=== PATIENT | female | born 1950 | race Caucasian/White ===

== ENCOUNTER 2018-08-03 09:31 | Observation (INO) | payer OTHER ==
[~2018-08-03 09:31] MED LIST: POVIDONE-IODINE 20 ML in SODIUM CL IRRIG SOLUTION 500 ML IRR ONE; ROPIVACAINE 0.2% 80 MG, EPINEPHrine 0.2 MG, KETOROLAC TROMETHAMINE 30 MG in SYRINGE 0 ML IU ONE; TRANEXAMIC ACID 1,000 MG in NS 100 ML IV ONE; TRANEXAMIC ACID 3,000 MG in NS (SYRINGE) 50 ML IRR ONE
[2018-08-03] MEDS ORDERED: ceFAZolin 2 GM/DEXTROSE 100 ML IV ONE (09:49)
[2018-08-03] MEDS ORDERED: DEXAMETHASONE 4 MG/ML VIAL IVP ONE (09:49)
[2018-08-03] MEDS ORDERED: GABAPENTIN 300 MG CAP PO ONE (09:49)
[2018-08-03] MEDS ORDERED: ONDANSETRON 4 MG/2 ML VIAL IVP ONE (09:49)
[2018-08-03] MEDS ORDERED: FAMOTIDINE 20 MG TAB PO ONE (09:49)
[2018-08-03] MEDS ORDERED: ACETAMINOPHEN 325 MG TAB PO ONE (09:49)
[2018-08-03] MEDS ORDERED: LR 1,000 ML IV ONE (09:51)
[2018-08-03] MEDS ORDERED: PROPOFOL/EMULSION 500 MG/50 ML BOTTLE IV ONE (10:57)
--- NOTE | 2018-08-03 10:57 | PDANEPAE ---
ANE History of Present Illness ,left tka ANE Past Medical History - Cardiovascular History Hx Hypertension: No Hx Arrhythmias: No Hx Chest Pain: No Hx Coronary Artery / Peripheral Vascular Disease: No Hx CHF / Valvular Disease: No Hx Palpitations: No - Pulmonary History Hx COPD: No Hx Asthma/Reactive Airway Disease: No Hx Recent Upper Respiratory Infection: No Hx Oxygen in Use at Home: No Hx Sleep Apnea: No Sleep Apnea Screening Result - Last Documented: Negative - Neurologic History Hx Cerebrovascular Accident: No Hx Seizures: No Hx Dementia: No Neurologic History Comment: MIGRAINES IN PAST - Endocrine History Hx Diabetes: No Obesity: yes, moderate - Renal History Hx Renal Disorders: No - Liver History Hx Hepatic Disorders: No - Neurological & Psychiatric Hx Hx Neurological and Psychiatric Disorders: No - Cancer History Hx Cancer: No - Congenital Disorder History Hx Congenital Disorders: No - GI History GERD: no Hx Gastrointestinal Disorders: Yes Gastrointestinal History Comment: HEARTBURN. DIVERTICULITIS IN PAST - Other Health History Other Health History: NEG - Chronic Pain History Chronic Pain: Yes (BETTY KNEES) - Surgical History Prior Surgeries: ELBOWS BETTY. R ANKLE W/PLATE. ACL L KNEE ANE Review of Systems Review of systems is: negative Review of Systems: - Exercise capacity METS (RN): 4 METS ANE Patient History - Allergies Allergies/Adverse Reactions: amoxicillin Allergy (Verified 07/22/18 15:24) Rash - Home Medications Home medications: home medication list seen and reviewed Home Medications: Acetaminophen [Tylenol ES 500 mg (*)] 1,000 mg PO DAILY PRN 07/22/18 [Last Taken 2 Weeks Ago ~07/20/18] Acyclovir [Zovirax 400 mg (*)] 400 mg PO DAILY 07/22/18 [Last Taken 08/03/18] Cholecalciferol Vit D3 [Vitamin D3 (*)] 1,000 units PO DAILY 07/22/18 [Last Taken 2 Weeks Ago ~07/20/18] Herbals/Supplements -Info Only 1 ea PO AD 07/22/18 [Last Taken 2 Weeks Ago ~04/28] Ranitidine HCl [Zantac] 150 mg PO DAILY PRN 07/22/18 [Last Taken 2 Weeks Ago ~] diphenhydrAMINE [Benadryl 25 MG (*)] 50 mg PO HS PRN 07/22/18 [Last Taken 2 Weeks Ago ~07/20/18] - NPO status NPO Since - Liquids (Date): 08/03/18 NPO Since - Liquids (Time): 10:00 NPO Since - Solids (Date): 08/02/18 NPO Since - Solids (Time): 20:00 - Anes Hx Anes Hx: no prior problems - Smoking Hx Smoking Status: Never smoked - Family Anes Hx Family Hx Anesthesia Complications: NEG ANE Labs/Vital Signs - Vital Signs Blood Pressure: 161/84 Heart Rate: 74 Respiratory Rate: 16 O2 Sat (%): 95 Height: 162.56 cm Weight: 88.451 kg ANE Physical Exam - Airway Neck exam: FROM Mallampati Score: Class 2 Mouth exam: normal dental/mouth exam - Pulmonary Pulmonary: no respiratory distress - Cardiovascular Cardiovascular: regular rate and rhythym - ASA Status ASA Status: II ANE Anesthesia Plan Anesthesia Plan: spinal Regional Anesthesia: continuous NB, adductor canal FNB
[2018-08-03] MEDS ORDERED: LIDOCAINE 2% 5 ML SDV ONE (10:59)
--- NOTE | 2018-08-03 12:10 | PDHPUP ---
History & Physical Update H&P update statement: This history and physical update is based on an assessment of the patient which was completed after admission or registration (within 24 hours), but prior to the surgery/procedure. H&P update: H&P reviewed & patient examined
[2018-08-03] MEDS ORDERED: VANCOMYCIN 1 GM VIAL ONE (12:14)
[2018-08-03] MEDS ORDERED: ceFAZolin 1 GM/5 ML SYR ONE (12:15)
[2018-08-03] MEDS ORDERED: MIDAZOLAM 2 MG/2 ML VIAL IVP ONE (12:35)
[2018-08-03] MEDS ORDERED: ROPIVACAINE HCL 150 MG/30 ML INJ ONE (12:48)
[2018-08-03] MEDS ORDERED: BUPIVACAINE/DEXTROSE 7.5MG/ML 2 ML SPINAL AMP SP ONE (12:59)
[2018-08-03] MEDS ORDERED: fentaNYL 100 MCG/2 ML INJ IVP PRN (13:31)
[2018-08-03] MEDS ORDERED: HYDROCODONE/APAP 5/325 TAB PO PRN (13:31)
[2018-08-03] MEDS ORDERED: HYDROmorphONE/DILAUDID 2 MG/ML INJ IVP PRN (13:31)
[2018-08-03] MEDS ORDERED: LR 500 ML IV PRN (13:31)
[2018-08-03] MEDS ORDERED: NALOXONE HCL 0.4 MG/ML INJ IVP PRN (13:31)
[2018-08-03] MEDS ORDERED: ACETAMINOPHEN 500 MG TAB PO PRN (13:31)
[2018-08-03] MEDS ORDERED: ONDANSETRON 4 MG/2 ML VIAL IVP PRN ×2 (13:31→15:28)
[2018-08-03] MEDS ORDERED: PROMETHAZINE HCL 25 MG/ML INJ IVP PRN ×2 (13:31→15:28)
[2018-08-03] MEDS ORDERED: oxyCODONE IR 5 MG TAB PO PRN (13:31)
--- NOTE | 2018-08-03 13:32 | POSTANESTH ---
Post Anesthetic Evaluation Cardiovascular Status: Normal, Stable Respiratory Status: Normal, Stable Level of Consciousness/Mental Status: Can Participate in Eval, Alert and Oriented Pain Control: Adequate, Prn Tx Ordered Nausea/Vomiting Control: Adequate, Prn Tx Ordered Complications Possibly Related to Anesthesia: None Noted
[2018-08-03] MEDS ORDERED: PROPOFOL 200 MG/20 ML VIAL ONE ×2 (14:09→14:44)
--- NOTE | 2018-08-03 15:07 | POSTOPPROG ---
Post Op Note Date of Operation: 08/03/18 Surgeon: Rupert Molina Lithograph Press Feeder: Rosy Anesthesiologist: Amna Anesthesia: IV Sedation, Spinal Pre-op Diagnosis: Left knee severe degenerative arthritis. Status post ACL reconstruction. Procedure: Left total knee arthroplasty. Hardware removal from the left tibia. Inf/Abcess present in the surg proc area at time of surgery?: No EBL: 50-100 (Adductor canal block with indwelling catheter in the PACU.)
[2018-08-03] MEDS ORDERED: traMADol 50 MG TAB PO PRN (15:28)
[2018-08-03] MEDS ORDERED: diphenhydrAMINE 25 MG CAP PO PRN (15:28)
[2018-08-03] MEDS ORDERED: NS 500 ML IV PRN (15:28)
[2018-08-03] MEDS ORDERED: CYCLOBENZAPRINE 10 MG TAB PO PRN (15:28)
[2018-08-03] MEDS ORDERED: NON-FORMULARY NEW DRUG (Ranitidine Hcl [Zantac] 150 MG) PO PRN (15:28)
[2018-08-03] MEDS ORDERED: BISACODYL 10 MG SUPP PR PRN (15:28)
[2018-08-03] MEDS ORDERED: ONDANSETRON DISINTEGRATING 4 MG TAB PO PRN (15:28)
[2018-08-03] MEDS ORDERED: POLYETHYLENE GLYCOL 3350 17 GM PKT PO PRN (15:28)
[2018-08-03] MEDS ORDERED: METOCLOPRAMIDE 10 MG/2 ML VIAL IVP PRN (15:28)
[2018-08-03] MEDS ORDERED: MAGNESIUM HYDROXIDE 30 ML UDCUP PO PRN (15:28)
[2018-08-03] MEDS ORDERED: DIPHENOXYLATE/ATROPINE LOMOTIL 1 TAB PO PRN (15:28)
[2018-08-03] MEDS ORDERED: PROMETHAZINE HCL 25 MG SUPPR PR PRN (15:28)
[2018-08-03] MEDS ORDERED: LACTULOSE 20 GM/30 ML UDCUP PO PRN (15:28)
[2018-08-03] MEDS ORDERED: LR 1,000 ML IV SCH (15:30)
[2018-08-03] MEDS: oxyCODONE IR 5 MG TAB PO PRN ×2 (18:14→21:14)
[2018-08-03] MEDS: KETOROLAC 15 MG/1 ML SDV IVP SCH ×2 (18:14→23:47)
[2018-08-03] MEDS: ACETAMINOPHEN 325 MG TAB PO SCH (21:12)
[2018-08-03] MEDS: FAMOTIDINE 20 MG TAB PO SCH (21:13)
[2018-08-03] MEDS: SENNOSIDES/DOCUSATE SODIUM TAB PO SCH (21:13)
[2018-08-03] MEDS: ceFAZolin 2 GM/DEXTROSE 100 ML IV SCH (21:14)
[2018-08-03] MEDS: ASPIRIN 325 MG TAB PO SCH (21:26)
[2018-08-03] MEDS: TEMAZEPAM 15 MG CAP PO PRN ×2 (22:06→23:47)
[2018-08-04] MEDS: oxyCODONE IR 5 MG TAB PO PRN ×3 (03:48→13:19)
[2018-08-04] MEDS: ACETAMINOPHEN 325 MG TAB PO SCH ×3 (03:49→14:57)
[2018-08-04] MEDS: ceFAZolin 2 GM/DEXTROSE 100 ML IV SCH (05:20)
[2018-08-04] MEDS: KETOROLAC 15 MG/1 ML SDV IVP SCH ×2 (05:20→11:38)
[2018-08-04] MEDS ORDERED: FERROUS SULFATE 325 MG TAB PO SCH (08:00)
--- NOTE | 2018-08-04 08:31 | GOP ---
[f rep st] OPERATIVE REPORT DATE OF OPERATION: 08/03/2018 SURGEON: Rupert Molina MD MANAGER OF PMO: Norberto Bailey and Bernabe ulloa ANESTHESIA: A combination of Marcaine spinal, IV sedation, and adductor canal block. ANESTHESIOLOGIST: Alexi Woo MD PREOPERATIVE DIAGNOSIS: Left knee severe degenerative arthritis, status post anterior cruciate ligament reconstruction. POSTOPERATIVE DIAGNOSIS: Left knee severe degenerative arthritis, status post anterior cruciate ligament reconstruction with retained hardware. PROCEDURE PERFORMED: 1. Left total knee arthroplasty, cemented, Grove and Nephew Journey II, posterior stabilized. 2. Hardware removal from the left tibia. FINDINGS: DESCRIPTION OF PROCEDURE: The patient was given 2 g of IV Ancef preoperatively within 60 minutes of surgery. She also received 1000 mg of IV tranexamic acid preoperatively. She was placed on the operating room table and given spinal anesthesia with Marcaine by Dr. Woo. She was then placed supine and given IV sedation. A Kelsey catheter was not used. She wore a LEXI stocking and SCD on the nonoperative leg. A bolster was placed under her left hip to prevent excessive external rotation of the leg. Her left lower extremity was prepped with ChloraPrep from the upper thigh tourniquet to the tips of the toes. It was draped free using sterile sheets, stockinette, and Ioban plastic adhesive drape. The lower leg was wrapped with compressive Coban. The leg was exsanguinated with elevation and a 6-inch compressive wrap, and the pneumatic tourniquet were inflated to 300 mmHg. She had a bulky thigh. The World Health Organization time-out was performed to verify the correct patient identity and the correct surgical side and site. The [place] time-out was also performed. The Agentrunayo leg holding device was sterilely attached to the operating room table and used throughout the procedure to help position the knee. A straight midline incision was made centered on the patella. Subcutaneous tissues were sharply divided, and hemostasis was obtained using electrocautery. A medial subcutaneous flap was developed, and the medial capsule and periosteum were opened in a medial parapatellar fashion. Extensive degenerative changes were present throughout the knee. The medial capsule and periosteum were elevated off the rim of the medial tibial plateau all the way around to the posterior medial corner. I had to do a moderately aggressive release of the medial side in order to balance the varus deformity of her knee. In order to improve exposure, her patella was prepared first. The original thickness of the patella was measured. Peripheral osteophytes were removed. I cut a flat surface on the back of the patella. It was sized for a 32 mm resurfacing component. I removed enough bone from the patella such that the remaining bone plus the thickness of the patellar component recreated the original thickness of the patella. The composite thickness was 22 mm. The intramedullary alignment guide system was used to set up the distal femoral cut. The distal femur was cut in 6 degrees of valgus. Because of a slight preoperative flexion contracture, I made a +2 mm cut on the distal femur. The sizing jig was used to determine proper femoral sizing. The jig was shifted anteriorly 2 mm in order to accommodate a size 4 femoral component without notching the anterior cortex. The 5-in-1 cutting block was applied, and the anterior and posterior condylar cuts and chamfer cuts were made. The final jig was used to remove the central portion of the distal femur to accommodate the posterior stabilized femoral component. I was careful to determine proper rotation by referencing off Whitesides line and other bony landmarks. Each cut was checked for accuracy. The femur was sized for a size 4 posterior stabilized component. Next, the tibia was prepared. There was an interference screw in the medial aspect of the proximal tibia from her previous ACL reconstruction. This had to be removed in order to make the tibial cuts. The tip of the screw was exposed. It was backed out with the appropriate screwdriver without any difficulty. The proximal tibial cut was made using the extramedullary alignment guide system. The cut was made in a few degrees of posterior slope. I was careful to achieve proper varus valgus alignment and proper rotation. The posterior compartment was cleared of meniscal remnants. She had large osteophytes on her posterior femoral condyles which were removed. She also had some loose bodies in the posterior compartment which were removed. I checked the flexion and extension gaps. I had to recut the tibia an additional 2 mm. At that point, the gaps were equal and balanced. Her tibia was sized for a size 3 component. With the trial components in place, I selected various thicknesses of polyethylene. I finally concluded that the 13 mm was the proper thickness. The knee came to full extension and flexed to 125 degrees. Her collateral ligaments were stable and balanced in 90 degrees of flexion and full extension. The trial patellar button was applied and tracking was checked. Tracking was excellent without digital pressure. 40 cc of joint anesthetic cocktail were injected into the posterior capsule, the quadriceps muscle and tendon areas, and the subcutaneous tissues along the skin edges. The surfaces were prepared for cementing. They were carefully cleaned with the pulsating lavage irrigation and thoroughly dried. The CarboJet device was used to blow dry the cancellous surfaces. A double batch of high viscosity methylmethacrylate cement with 2 g of powdered vancomycin added was mixed. While it was still in a doughy state, all [address] components were cement[address] in place. Excess cement was removed before it hardened. The 13 mm trial tibial insert was re-tried and was the proper thickness. The actual component was inserted and locked into place. The knee was thoroughly irrigated one final time with antibiotic saline solution. [facility] does not have sterile betadine irrigation solution available currently. The tourniquet was deflated, and the total tourniquet time was 1 hour 22 minutes. Extra time was needed to get proper joint gap balancing. 50 cc of tranexamic acid were irrigated into the wound. The vastus medialis portion of the extensor mechanism was repaired with several interrupted [id number] #2 FiberWire sutures. The capsule and synovium were closed first with multiple interrupted [id number] PDS sutures, followed by a running #3 barbed Ethicon Stratafix PDO suture. Subcutaneous tissues were closed with a running 0 barbed Ethicon Stratafix Monoderm suture. The skin was closed with a running 3-0 barbed Ethicon Stratafix Monoderm subcuticular suture. The skin was sealed with half-inch Steri-Strips. The wound was covered with a large sterile Mepilex waterproof dressing and a 6-inch compressive wrap. A long-leg LEXI stocking and SCD were applied, followed by the cooling device. The patient wore a stocking and SCD on the opposite leg during the procedure. The sacral Mepilex dressing was also applied. I used a size 4 Grove and Nephew Oxinium cemented posterior stabilized femoral component, a size 3 cemented tibial baseplate, a 13 mm posterior stabilized tibial insert, and a 32 mm cemented round all-polyethylene resurfacing patellar component. The estimated blood loss following inflation of the tourniquet was about 100 cc. The sponge and needle count were correct on 2 occasions. She was awakened from anesthesia, transferred to her hospital [facility], and taken to PACU in satisfactory condition. There were no recognized intraoperative complications. In the PACU, for additional postoperative pain control, Dr. Woo performed an adductor canal block. Norberto Bailey and Bernabe Alva acted as surgical assistants. Their assistance was a medical necessity for safe completion of the procedure. /[id number]/MODL MTDD
[2018-08-04] MEDS ORDERED: LIPID EMULSION 20% 100 ML IV PRN (08:45)
[2018-08-04] MEDS ORDERED: ROPIVACAINE HCL 150 MG/30 ML INJ ONE (08:51)
[2018-08-04] MEDS ORDERED: CHOLECALCIFEROL VIT D3 1,000 UNITS TAB PO SCH (09:00)
[2018-08-04] MEDS ORDERED: ACYCLOVIR 400 MG TAB PO SCH (09:00)
--- NOTE | 2018-08-04 09:38 | PDPAINCON ---
Pain Management Consultation Patient referred by : Jesse - Subjective Pain is: high, but manageable Activity: able to ambulate, participating in PT - Objective Technique: continuous peripheral nerve block (adductor canal) Catheter site: clean, dry, intact Sensory and motor exam: consistent with block Vital signs: stable - Assessment/Plan Assessment/Plan: pain well-controlled, continue current mgmt (POD 1 s/p TKA, with AC catheter in place. 0.5% ropivacaine 20ml bolused incrementally today with negative aspiration. Catheter removed without complication. Patient had syncopal episode during PT session this morning, resolved with laying supine. Likely d/c home later today.)
[2018-08-04] MEDS: FAMOTIDINE 20 MG TAB PO SCH (09:43)
[2018-08-04] MEDS: SENNOSIDES/DOCUSATE SODIUM TAB PO SCH (09:44)
[2018-08-04] MEDS: ASPIRIN 325 MG TAB PO SCH (09:44)
--- NOTE | 2018-08-04 09:45 | SOAPPROG ---
SOAP Progress Note Assessment/Plan: Assessment: Afebrile. Moderate pain. She has been up and walking in the ahuja. Postop H&H are good. Postop films look good. Her dressing is dry. She had a syncopal episode during physical therapy this morning. Plan: Continue physical therapy this afternoon. Discharge later today. 08/04/18 09:43 Objective: Vital Signs Temp Pulse Resp BP Pulse Ox 36.4 C 79 16 109/69 93 08/04/18 08:00 08/04/18 08:00 08/04/18 08:00 08/04/18 08:00 08/04/18 08:00 Laboratory Results 08/04/18 04:42 08/03/18 08/04/18 08/05/18 05:59 05:59 05:59 Intake Total 2004 350 Output Total 1650 250 Balance 355 100 ICD10 Worksheet Patient Problems: Problems Problem Status Onset Osteoarthritis of left knee Acute
--- NOTE | 2018-08-04 10:36 | GDS ---
[f rep st] DISCHARGE SUMMARY ADMISSION DIAGNOSIS: Left knee severe degenerative arthritis, status post anterior cruciate ligament reconstruction. DISCHARGE DIAGNOSIS: Left knee severe degenerative arthritis, status post anterior cruciate ligament reconstruction. OPERATIONS PERFORMED: 08/03/2018: 1. Left total knee arthroplasty. 2. Hardware removal from the left tibia. POSTOPERATIVE COMPLICATIONS: None. CONDITION ON DISCHARGE: Improved. DESCRIPTION OF HOSPITAL COURSE: The patient was admitted to the hospital the morning of surgery. He r preoperative hemoglobin and hematocrit on July 15, 2018, were 12.0 and 35.1. Platelet count 207,00 0. The same day, under a combination of Marcaine spinal, IV sedation and adductor canal block, she u nderwent a left total knee arthroplasty and hardware removal from her left tibia. Postoperatively, s he was treated with multimodal DVT prophylaxis, including aspirin. On the first postoperative day, h er hemoglobin and hematocrit were 12.0 and 35.1. She was seen by Physical Therapy and made satisfact ory progress with ambulation, knee range of motion and stairs. She had a postural hypotension episod e in physical therapy on the first postoperative day. She recovered from that. By the time of disch arge, she was afebrile and was able to walk with a walker, partial weightbearing on the left. DISPOSITION: The patient is discharged to her home. She will go to outpatient physical therapy. Co ntinue aspirin 325 mg p.o. daily for 21 days. She has prescriptions for Celebrex, oxycodone and tram adol for pain control. I will see her back in the office on August 12, 2018. If there are any problem s, she is to call me at the office. /[id number]/MODL
--- NOTE | 2018-08-04 10:48 | ASMTLACE ---
LACE Length of stay for Answers: 2 days current admission Acuity / Level of Answers: No Care: Did the patient have an inpatient admission? Comorbidities - select Answers: Other Notes: Arthritis all that apply # of Emergency department Answers: 0 visits in the last 6 months Score: 3 Date Signed: 08/04/2018 10:47 AM Electronically Signed By:TENISHA Winslow
--- NOTE | 2018-08-04 10:53 | ASMTCMCOM ---
CM Note CM Note Notes: Pt had planned OA of knee. PT rec home care. Pt reports she has a home PT arranged who is going to to see if he can take pt insurance and if not, pt will private pay. Pt declines CM setting up home care. Pt medically stable for d/c with family support and home PT. Date Signed: 08/04/2018 10:52 AM Electronically Signed By:TENISHA Winslow
[2018-08-04 12:45] VITALS: BP 116/73
== END 2018-08-04 15:24 | disposition home or self-care (01) ==
LOC: F3N 09:31
PROVIDERS: ADMIT Orthopaedic Surgery; ATTEND Orthopaedic Surgery
PROC: 0QPH04Z Removal of Internal Fixation Device from Left Tibia, Open Approach (ICD-10-PCS; 2018-08-03)
PROC: 0SRD0J9 Replacement of Left Knee Joint with Synthetic Substitute, Cemented, Open Approach (ICD-10-PCS; principal; 2018-08-03 12:15)
DX: M17.12 Unilateral primary osteoarthritis, left knee (principal); G43.909 Migraine, unspecified, not intractable, without status migrainosus; Z87.440 Personal history of urinary (tract) infections; Z98.890 Other specified postprocedural states; Z88.0 Allergy status to penicillin
CPT/HCPCS: 20680; 27447; 73560; 77073; 88311; 97116; 97161; 97165; C1713; C1776; G0378; J0171; J0690; J1100; J1885; J2250; J2405; J2704; J2795; J3370

== ENCOUNTER 2018-08-20 12:30 | Inpatient (IN) | payer OTHER ==
--- NOTE | 2018-08-20 12:40 | EDPHY ---
H & P Stated Complaint: poss anemic Time Seen by Provider: 08/20/18 12:40 - Personal History Current Tetanus Diphtheria and Acellular Pertussis (TDAP): Yes - Medical/Surgical History Hx Asthma: No Hx Chronic Respiratory Disease: No Hx Diabetes: No Hx Cardiac Disease: No Hx Renal Disease: No Hx Cirrhosis: No Hx Alcoholism: No Hx HIV/AIDS: No Hx Splenectomy or Spleen Trauma: No Other PMH: L TKA 08/03/18, elbow surg, diverticulitis - Social History Smoking Status: Never smoked Constitutional: Initial Vital Signs Temperature (C) 37.3 C 08/20/18 12:34 Heart Rate 116 H 08/20/18 12:34 Respiratory Rate 18 08/20/18 12:34 Blood Pressure 133/72 H 08/20/18 12:34 O2 Sat (%) 100 08/20/18 12:34 O2 Delivery Mode Room Air Allergies/Adverse Reactions: amoxicillin Allergy (Verified 07/22/18 15:24) Rash Home Medications: Medication Instructions Recorded Acyclovir [Zovirax 400 mg (*)] 400 mg PO DAILY 07/22/18 Acetaminophen [Tylenol 325mg (*)] 650 mg PO Q6H tab 08/04/18 Aspirin [Aspirin 325 mg (*)] 325 mg PO DAILY tab 08/04/18 Ferrous Sulfate [Ferrous Sulf 325 325 mg PO BIDMEAL tab 08/04/18 MG (*)] celeCOXIB [Celebrex (*)] 200 mg PO DAILY cap 08/04/18 Zolpidem Tartrate [Ambien 5MG (*)] 5 mg PO HS 08/20/18 Medical Decision Making ED Course/Re-evaluation: CHIEF COMPLAINT: Dizzy, short of breath, "anemic" HISTORY OF PRESENT ILLNESS: The patient is a 67 y/o female with a history of a left knee replacement ( with Dr. Molina) complaining of feeling lightheaded, dizzy, and short of breath. The patient reports that she had surgery in late July, but did not have any excessive bleeding afterwards. She did notice "a little bit of black tarry stool" which she is attributing to taking iron supplements. She also has some old bruising on her left lower leg. She does take aspirin prophylactically. No fever, headache, body aches, chest pain, heart palpitations , cough, abdominal pain, urinary complaints, numbness, paresthesias. REVIEW OF SYSTEMS: A comprehensive 10 system review of systems is otherwise negative aside from elements mentioned in the history of present illness and medical decision making. PHYSICAL EXAM: HR, BP, O2 Sat, RR. Temp noted General Appearance: Alert, well hydrated, appropriate, and non-toxic appearing. Head: Atraumatic without scalp tenderness or obvious injury Eyes: Pupils equal, round, reactive to light and accommodation, EOMI, no trauma , no injection. Ears: Clear bilaterally, no perforation, normal landmarks Nose: Atraumatic, no rhinorrhea, clear. Throat: There is no erythema or exudates, no lesions, normal tonsils, mucus membranes moist. Neck: Supple, 2+ carotid upstroke, nontender, no lymphadenopathy. Respiratory: No retractions, no distress, no wheezes, and no accessory muscle use. Lungs are clear to auscultation bilaterally. Cardiovascular: Tachycardic, no murmurs, rubs, or gallops. Bilateral carotid, radial, dorsalis pedis, and posterior tibial pulses intact. Good capillary refill all extremities. Gastrointestinal: Abdomen is soft, nontender, non-distended, no masses, no rebound, no guarding, no peritoneal signs. Rectal: No external hemorrhoids. No gross blood. Musculoskeletal: Normal active ROM of all extremities, atraumatic. Neurological: Alert, appropriate, and interactive. The patient has normal DTRs and non-focal cranial nerves, motor, sensory, and cerebellar exam. Skin: Pale skin and pale mucus membranes. Old bruising on left lower leg. No rashes, good turgor, no nodules on palpation. Past medical history: Diverticulitis Past surgical history: Left TKA (08/03/18), elbow surgery Family history: Denies Social history: Son at bedside, lives in [place], [facility] DIAGNOSTICS/PROCEDURES/CRITICAL CARE TIME: Not indicated. DIFFERENTIAL DIAGNOSIS: The differential diagnosis for the patient's dizziness included but was not limited to peripheral and central causes of vertigo, orthostatic causes including dehydration, cardiogenic and neurogenic causes, and blood loss. MEDICAL DECISION MAKING: The patient is a 67 y/o female with a history of a left knee replacement () presenting with feeling lightheaded, dizzy, and short of breath. The patient reports that she had surgery in late July, but did not have any excessive bleeding afterwards. She did notice "a little bit of black tarry stool " which she is attributing to taking iron supplements. On exam she is very pale and has pale mucus membranes. There is gross blood on her rectal exam. Labs ordered; 1L IV NS administered. Per her old labs her pre-op hematocrit was 43.6 and 35 after surgery. 1259: Patient's hematocrit is 17 and hemoglobin is 5.8. We will type and cross the patient and have 2 units of blood on standby. 1306: Patient's labs reveal occult blood. Patient is most likely having an upper GI bleed post-surgery. She will need to be admitted; hospitalist and GI paged. The [facility] states that the patient was supposed to have an outpatient blood transfusion upstairs today. 4mg IV Zofran and 80mg IV Protonix administered. 1310: Reassessed patient and discussed laboratory findings as well as plan for admission. She is comfortable with this plan. 1335: I consulted with Dr. Amezcua, energy efficient site manager, he agrees to consult on this patient during her admission. - Data Points Laboratory Results: Laboratory Results 08/20/18 12:52 08/20/18 12:52 08/20/18 08/20/18 08/20/18 12:56 12:52 12:52 WBC RBC Hgb POC Hgb 5.8 gm/dL L* gm/dL (12.6-16.3) Hct POC Hct 17 % L* % (38-47) MCV MCH MCHC RDW Plt Count MPV Neut % (Auto) Lymph % (Auto) Baldwin % (Auto) Eos % (Auto) Baso % (Auto) Nucleat RBC Rel Count Absolute Neuts (auto) Absolute Lymphs (auto) Absolute Monos (auto) Absolute Eos (auto) Absolute Basos (auto) Absolute Nucleated RBC Immature Gran % Seg Neutrophils % Band Neutrophils % Lymphocytes % Monocytes % Eosinophils % Basophils % Metamyelocytes % Myelocytes % Promyelocytes % Blast Cells % Immature Gran # Absolute Seg Neuts Absolute Band Neuts Absolute Lymphocytes Absolute Monocytes Absolute Eosinophils Absolute Basophils Absolute Metamyelocyte Absolute Myelocytes Absolute Promyelocytes Absolute Plasma Cells Nucleated RBCs Absolute Blast Cells Plasma Cells % Platelet Estimate Polychromasia Microcytic Cells Smear Review By PT INR APTT POC Sodium 139 mEq/L mEq/L (135-145) Sodium POC Potassium 3.4 mEq/L mEq/L (3.3-5.0) Potassium POC Chloride 106 mEq/L mEq/L (97-110) Chloride Carbon Dioxide POC Total CO2 19 mEq/L L mEq/L (22-31) Anion Gap POC BUN 32 mg/dL H mg/dL (7-23) BUN Creatinine POC Creatinine 0.6 mg/dL mg/dL (0.6-1.0) Estimated GFR Glucose POC Glucose 125 mg/dL H mg/dL (70-100) Calcium Total Bilirubin Conjugated Bilirubin Unconjugated Bilirubin AST ALT Alkaline Phosphatase Total Protein Albumin Lipase Stool Occult Bld Scrn POSITIVE H (NEGATIVE) Patient ABO/Rh A POSITIVE Antibody Screen NEGATIVE Crossmatch IS Only See Detail 08/20/18 08/20/18 08/20/18 12:52 12:52 12:52 WBC 17.63 10^3/uL H 10^3/uL (3.80-9.50) RBC 1.94 10^6/uL L 10^6/uL (4.18-5.33) Hgb 5.8 g/dL L* g/dL (12.6-16.3) POC Hgb Hct 18.2 % L % (38.0-47.0) POC Hct MCV 93.8 fL fL (81.5-99.8) MCH 29.9 pg pg (27.9-34.1) MCHC 31.9 g/dL L g/dL (32.4-36.7) RDW 14.9 % % (11.5-15.2) Plt Count 502 10^3/uL H 10^3/uL (150-400) MPV 8.6 fL L fL (8.7-11.7) Neut % (Auto) Not Reported Lymph % (Auto) Not Reported Baldwin % (Auto) Not Reported Eos % (Auto) Not Reported Baso % (Auto) Not Reported Nucleat RBC Rel Count Not Reported Absolute Neuts (auto) Not Reported Absolute Lymphs (auto) Not Reported Absolute Monos (auto) Not Reported Absolute Eos (auto) Not Reported Absolute Basos (auto) Not Reported Absolute Nucleated RBC Not Reported Immature Gran % Not Reported Seg Neutrophils % 54.1 % % Band Neutrophils % 2.0 % % Lymphocytes % 37.8 % % Monocytes % 3.1 % % Eosinophils % 2.0 % % Basophils % 1.0 % % Metamyelocytes % 0.0 % % Myelocytes % 0.0 % % Promyelocytes % 0.0 % % Blast Cells % 0.0 % % Immature Gran # Not Reported Absolute Seg Neuts 9.54 10^3/uL H 10^3/uL (1.70-6.50) Absolute Band Neuts 0.35 10^3/uL 10^3/uL (0.00-0.70) Absolute Lymphocytes 6.66 10^3/uL H 10^3/uL (1.00-3.00) Absolute Monocytes 0.55 10^3/uL 10^3/uL (0.30-0.80) Absolute Eosinophils 0.35 10^3/uL 10^3/uL (0.03-0.40) Absolute Basophils 0.18 10^3/uL H 10^3/uL (0.02-0.10) Absolute Metamyelocyte 0.00 10^3/mL 10^3/mL (0.00-0.00) Absolute Myelocytes 0.00 10^3/mL 10^3/mL (0.00-0.00) Absolute Promyelocytes 0.00 10^3/uL 10^3/uL (0.00-0.00) Absolute Plasma Cells 0.00 10^3/uL 10^3/uL (0.00-0.00) Nucleated RBCs 0 /100 WBC /100 WBC (0-0) Absolute Blast Cells 0.00 10^3/uL 10^3/uL (0.00-0.00) Plasma Cells % 0.0 % % Platelet Estimate INCREASED H (ADEQ) Polychromasia 3+ H Microcytic Cells 2+ H Smear Review By Pending PT 13.5 SEC SEC (12.0-15.0) INR 1.07 (0.83-1.16) APTT 26.9 SEC SEC (23.0-38.0) POC Sodium Sodium 135 mEq/L mEq/L (135-145) POC Potassium Potassium 3.8 mEq/L mEq/L (3.5-5.2) POC Chloride Chloride 107 mEq/L mEq/L (97-110) Carbon Dioxide 20 mEq/l L mEq/l (22-31) POC Total CO2 Anion Gap 8 mEq/L mEq/L (6-14) POC BUN BUN 34 mg/dL H mg/dL (7-23) Creatinine 0.6 mg/dL mg/dL (0.6-1.0) POC Creatinine Estimated GFR > 60 Glucose 117 mg/dL H mg/dL (70-100) POC Glucose Calcium 8.5 mg/dL mg/dL (8.5-10.4) Total Bilirubin 0.5 mg/dL mg/dL (0.1-1.4) Conjugated Bilirubin 0.4 mg/dL mg/dL (0.0-0.5) Unconjugated Bilirubin 0.1 mg/dL mg/dL (0.0-1.1) AST 16 IU/L IU/L (14-46) ALT 38 IU/L IU/L (9-52) Alkaline Phosphatase 66 IU/L IU/L (38-126) Total Protein 5.4 g/dL L g/dL (6.3-8.2) Albumin 3.2 g/dL L g/dL (3.5-5.0) Lipase 162 IU/L IU/L (23-300) Stool Occult Bld Scrn Patient ABO/Rh Antibody Screen Crossmatch IS Only Medications Given: Discontinued Medications Sodium Chloride (Ns) 1,000 mls @ 0 mls/hr IV EDNOW ONE; Wide Open PRN Reason: Protocol Stop: 08/20/18 12:50 Last Admin: 08/20/18 13:01 Dose: 1,000 mls Ondansetron HCl (Zofran) 4 mg IVP EDNOW ONE Stop: 08/20/18 13:07 Last Admin: 08/20/18 13:15 Dose: 4 mg Ondansetron HCl (Zofran) 4 mg IVP EDNOW ONE Stop: 08/20/18 13:07 Last Admin: 08/20/18 13:15 Dose: Not Given Pantoprazole Sodium (Protonix) 80 mg IVP EDNOW ONE Stop: 08/20/18 13:05 Last Admin: 08/20/18 13:15 Dose: 80 mg Point of Care Test Results: Chemistry 08/20/18 12:56 POC Sodium 139 mEq/L mEq/L (135-145) POC Potassium 3.4 mEq/L mEq/L (3.3-5.0) POC Chloride 106 mEq/L mEq/L (97-110) POC Total CO2 19 mEq/L L mEq/L (22-31) POC BUN 32 mg/dL H mg/dL (7-23) POC Creatinine 0.6 mg/dL mg/dL (0.6-1.0) POC Glucose 125 mg/dL H mg/dL (70-100) ISTAT H&H 08/20/18 12:56 POC Hgb 5.8 gm/dL L* gm/dL (12.6-16.3) POC Hct 17 % L* % (38-47) Departure - Departure Referrals: Arturo Alvarado MD [Primary Care Provider] - As per Instructions Report Scribed for: Sharif Martinez Report Scribed by: Gertrude Arevalo Date of Report: 08/20/18 Time of Report: 12:43
[2018-08-20] MEDS ORDERED: NS 1,000 ML IV ONE (12:49)
[2018-08-20] MEDS ORDERED: PANTOPRAZOLE SODIUM 40 MG VIAL IVP ONE (13:04)
[2018-08-20] MEDS ORDERED: ONDANSETRON 4 MG/2 ML VIAL IVP ONE ×2 (13:06)
[2018-08-20] MEDS ORDERED: NS 50 ML BAG IV ONE (13:08)
[2018-08-20 13:17] LABS: INR 1.07 (0.83-1.16); PROTIME(PATIENT) 13.5 SEC (12.0-15.0)
[2018-08-20 13:27] LABS: PLATELET COUNT 502 10^3/uL (150-400)
--- NOTE | 2018-08-20 15:46 | GCON ---
[f rep st] CONSULTATION REFERRING PHYSICIAN: Oliver Kumar MD REASON FOR CONSULTATION: Anemia. Dear Dr. Kumar: Thank you very kindly for asking me to evaluate Ms. Suarez in consultation for a chief complaint of melena. She was very short of breath, weak and dizzy, and presented to the ER and found to have a he matocrit of 17, which is new. She is postop 2 weeks from a left knee replacement. She has been taki ng full-strength aspirin but no other NSAIDs. She has not had a previous GI bleed, but has had a rem ote history of dysphagia for which she underwent endoscopy with dilation about 20 years ago. She has not had problems with dysphagia since. She denies any true heartburn. She has been having some jaime tral and upper abdominal discomfort for the last week. She noted melena, probably, she thinks about 3 days in duration with several dark black bowel movements. Today, she was just too dizzy and weak t o continue and brought herself to the emergency room. She has been hemodynamically stable and is on no blood thinners. Her INR is normal. I am asked to assist with further evaluation and management. PAST MEDICAL HISTORY: Significant for degenerative joint disease, history of dysphagia, aspirin use, diverticulosis complicated by diverticulitis, but she has not had an episode of this in several year s. PAST SURGICAL HISTORY: Significant for left total knee replacement. FAMILY HISTORY: Negative for anemia or colon cancer. No history of peptic ulcer disease. MEDICATIONS: On admission include: Aspirin 325 mg once daily. ALLERGIES: Amoxicillin, causing rash. SOCIAL HISTORY: She lives in [place]. She is single. She has one son. She is retired. No tobac co. No substance abuse. No alcohol abuse. REVIEW OF SYSTEMS: Negative other than the HPI. PHYSICAL EXAMINATION: VITAL SIGNS: Blood pressure 122/68, heart rate 103, respirations 18, oxygenat ion 97% on room air, T max 37.5. GENERAL: Pale female in no acute distress. HEENT: Sclerae anicte kan. Oropharynx clear. No palatal petechiae. No epistaxis. NECK: Supple. PULMONARY: Clear to a uscultation bilaterally. CARDIOVASCULAR: Tachycardia with systolic murmur at the left border. GI: Abdomen is soft, nontender, nondistended. No organomegaly. No abdominal bruit. No ascites. MUSCU LOSKELETAL: Normal gait and station. There is a left knee surgery with Steri-Strips in place and so me swelling around the left knee and a little bit of bruising underneath the Steri-Strips. There is a slight bit of edema to the left leg. SKIN: Warm and dry. Pale. No jaundice. No telangiectasias . No palmar erythema. NEUROLOGIC: Alert to person, place, and time. Speech normal. Motor nonfoca l. DATABASE: White blood count is 17.6 with a hematocrit of 18.2, and a platelet count of 502. INR 1.0 7. Sodium 139, potassium 3.4, chloride 106, bicarbonate 19, BUN is elevated at 34 with a creatinine of 0.6, consistent with an upper GI bleeding source. LFTs are normal. Lipase 162. IMPRESSION: 1. Melena. 2. Anemia secondary to acute blood loss. 3. Nonsteroidal antiinflammatory drug use. 4. Recent left total knee arthroplasty. 5. Weakness. 6. Near syncope. RECOMMENDATIONS: 1. IV Protonix bolus with continuous infusion. 40 mg IV three times daily would also be equivalent and reasonable if a continuous infusion is not available. 2. Avoid all NSAIDs. 3. Clear liquid diet today, n.p.o. after midnight. 4. Transfusion of 2 units of packed cells with posttransfusion hematocrit and serial hematocrits q.4 hours. 5. Upper endoscopy will be arranged for the morning with a more urgent intervention if she has more acute problems. I believe she would benefit from resuscitation prior to endoscopic intervention. 6. Consider antibiotic prophylaxis for the EGD. While a low risk procedure, she has had a 2-week-ol d arthroplasty in the left knee. Levaquin would be a good choice given her amoxacillin allergy. 7. Further recommendations to follow. /[id number]/MODL
[2018-08-20] MEDS ORDERED: ONDANSETRON DISINTEGRATING 4 MG TAB PO PRN (16:14)
[2018-08-20] MEDS ORDERED: ONDANSETRON 4 MG/2 ML VIAL IVP PRN (16:14)
--- NOTE | 2018-08-20 16:39 | PDGENHP ---
History and Physical - Chief Complaint weakness - History of Present Illness The patient is a 67 y/o female with a history of a left knee replacement ( with Dr. Molina) complaining of feeling lightheaded, dizzy, and short of breath. She did notice "a little bit of black tarry stool" which she is attributing to taking iron supplements. Post op, she takes aspirin prophylactically. No fever, headache, body aches, chest pain, heart palpitations , cough, abdominal pain, urinary complaints, numbness, paresthesias. In the ER she is noted to have a Hgb of 5.8. She is being transfused She is being admitted to the SDU Past medical history: Diverticulitis, dysphagia with esophageal dilatation over 20 years ago Past surgical history: Left TKA (08/03/18), elbow surgery Family history: Denies Social history: lives in [place], retired, non smoker, social etoh History Information - Allergies/Home Medication List Allergies/Adverse Reactions: amoxicillin Allergy (Verified 07/22/18 15:24) Rash Home Medications: Acyclovir [Zovirax 400 mg (*)] 400 mg PO HS 07/22/18 [Last Taken 08/03/18] Zolpidem Tartrate [Ambien 5MG (*)] 5 mg PO HS 08/20/18 [Last Taken Unknown] I have personally reviewed and updated: medical history, social history - Social History Smoking Status: Never smoked Review of Systems Review of Systems: ROS: 10pt was reviewed & negative except for what was stated in HPI & below Physical Exam Physical Exam: Temp Pulse Resp BP Pulse Ox 37.5 C 103 H 16 131/69 H 99 08/20/18 15:12 08/20/18 15:12 08/20/18 15:12 08/20/18 15:12 08/20/18 15:12 Constitutional: no apparent distress, appears nourished Eyes: PERRL, EOMI Ears, Nose, Mouth, Throat: moist mucous membranes, hearing normal Cardiovascular: regular rate and rhythym, edema (LLE edema) Respiratory: no respiratory distress, no rales or rhonchi, clear to auscultation Gastrointestinal: normoactive bowel sounds, soft, non-tender abdomen Skin: warm Neurologic: AAOx3 Psychiatric: interacting appropriately, not anxious, not encephalopathic Lymph, Heme, Immunologic: No petechiae Lab Data & Imaging Review 08/20/18 12:52 08/20/18 12:52 WBC 17.63 10^3/uL (3.80-9.50) H 08/20/18 12:52 RBC 1.94 10^6/uL (4.18-5.33) L 08/20/18 12:52 Hgb 5.8 g/dL (12.6-16.3) L* 08/20/18 12:52 POC Hgb 5.8 gm/dL (12.6-16.3) L* 08/20/18 12:56 Hct 18.2 % (38.0-47.0) L 08/20/18 12:52 POC Hct 17 % (38-47) L* 08/20/18 12:56 MCV 93.8 fL (81.5-99.8) 08/20/18 12:52 MCH 29.9 pg (27.9-34.1) 08/20/18 12:52 MCHC 31.9 g/dL (32.4-36.7) L 08/20/18 12:52 RDW 14.9 % (11.5-15.2) 08/20/18 12:52 Plt Count 502 10^3/uL (150-400) H 08/20/18 12:52 MPV 8.6 fL (8.7-11.7) L 08/20/18 12:52 Neut % (Auto) Not Reported 08/20/18 12:52 Lymph % (Auto) Not Reported 08/20/18 12:52 Dickinson % (Auto) Not Reported 08/20/18 12:52 Eos % (Auto) Not Reported 08/20/18 12:52 Baso % (Auto) Not Reported 08/20/18 12:52 Nucleat RBC Rel Count Not Reported 08/20/18 12:52 Absolute Neuts (auto) Not Reported 08/20/18 12:52 Absolute Lymphs (auto) Not Reported 08/20/18 12:52 Absolute Monos (auto) Not Reported 08/20/18 12:52 Absolute Eos (auto) Not Reported 08/20/18 12:52 Absolute Basos (auto) Not Reported 08/20/18 12:52 Absolute Nucleated RBC Not Reported 08/20/18 12:52 Immature Gran % Not Reported 08/20/18 12:52 Seg Neutrophils % 54.1 % 08/20/18 12:52 Band Neutrophils % 2.0 % 08/20/18 12:52 Lymphocytes % 37.8 % 08/20/18 12:52 Monocytes % 3.1 % 08/20/18 12:52 Eosinophils % 2.0 % 08/20/18 12:52 Basophils % 1.0 % 08/20/18 12:52 Metamyelocytes % 0.0 % 08/20/18 12:52 Myelocytes % 0.0 % 08/20/18 12:52 Promyelocytes % 0.0 % 08/20/18 12:52 Blast Cells % 0.0 % 08/20/18 12:52 Immature Gran # Not Reported 08/20/18 12:52 Absolute Seg Neuts 9.54 10^3/uL (1.70-6.50) H 08/20/18 12:52 Absolute Band Neuts 0.35 10^3/uL (0.00-0.70) 08/20/18 12:52 Absolute Lymphocytes 6.66 10^3/uL (1.00-3.00) H 08/20/18 12:52 Absolute Monocytes 0.55 10^3/uL (0.30-0.80) 08/20/18 12:52 Absolute Eosinophils 0.35 10^3/uL (0.03-0.40) 08/20/18 12:52 Absolute Basophils 0.18 10^3/uL (0.02-0.10) H 08/20/18 12:52 Absolute Metamyelocyte 0.00 10^3/mL (0.00-0.00) 08/20/18 12:52 Absolute Myelocytes 0.00 10^3/mL (0.00-0.00) 08/20/18 12:52 Absolute Promyelocytes 0.00 10^3/uL (0.00-0.00) 08/20/18 12:52 Absolute Plasma Cells 0.00 10^3/uL (0.00-0.00) 08/20/18 12:52 Nucleated RBCs 0 /100 WBC (0-0) 08/20/18 12:52 Absolute Blast Cells 0.00 10^3/uL (0.00-0.00) 08/20/18 12:52 Plasma Cells % 0.0 % 08/20/18 12:52 Platelet Estimate INCREASED (ADEQ) H 08/20/18 12:52 Polychromasia 3+ H 08/20/18 12:52 Microcytic Cells 2+ H 08/20/18 12:52 PT 13.5 SEC (12.0-15.0) 08/20/18 12:52 INR 1.07 (0.83-1.16) 08/20/18 12:52 APTT 26.9 SEC (23.0-38.0) 08/20/18 12:52 POC Sodium 139 mEq/L (135-145) 08/20/18 12:56 Sodium 135 mEq/L (135-145) 08/20/18 12:52 POC Potassium 3.4 mEq/L (3.3-5.0) 08/20/18 12:56 Potassium 3.8 mEq/L (3.5-5.2) 08/20/18 12:52 POC Chloride 106 mEq/L (97-110) 08/20/18 12:56 Chloride 107 mEq/L (97-110) 08/20/18 12:52 Carbon Dioxide 20 mEq/l (22-31) L 08/20/18 12:52 POC Total CO2 19 mEq/L (22-31) L 08/20/18 12:56 Anion Gap 8 mEq/L (6-14) 08/20/18 12:52 POC BUN 32 mg/dL (7-23) H 08/20/18 12:56 BUN 34 mg/dL (7-23) H 08/20/18 12:52 Creatinine 0.6 mg/dL (0.6-1.0) 08/20/18 12:52 POC Creatinine 0.6 mg/dL (0.6-1.0) 08/20/18 12:56 Estimated GFR > 60 08/20/18 12:52 Glucose 117 mg/dL (70-100) H 08/20/18 12:52 POC Glucose 125 mg/dL (70-100) H 08/20/18 12:56 Calcium 8.5 mg/dL (8.5-10.4) 08/20/18 12:52 Total Bilirubin 0.5 mg/dL (0.1-1.4) 08/20/18 12:52 Conjugated Bilirubin 0.4 mg/dL (0.0-0.5) 08/20/18 12:52 Unconjugated Bilirubin 0.1 mg/dL (0.0-1.1) 08/20/18 12:52 AST 16 IU/L (14-46) 08/20/18 12:52 ALT 38 IU/L (9-52) 08/20/18 12:52 Alkaline Phosphatase 66 IU/L (38-126) 08/20/18 12:52 Total Protein 5.4 g/dL (6.3-8.2) L 08/20/18 12:52 Albumin 3.2 g/dL (3.5-5.0) L 08/20/18 12:52 Lipase 162 IU/L (23-300) 08/20/18 12:52 Stool Occult Bld Scrn POSITIVE (NEGATIVE) H 08/20/18 12:52 Patient ABO/Rh A POSITIVE 08/20/18 12:52 Antibody Screen NEGATIVE 08/20/18 12:52 Crossmatch IS Only See Detail 08/20/18 12:52 Assessment & Plan Assessment: #Melena with likely UGIB #ABLA #NSAID use #S/p total knee replacement recently #Generalized Weakness due to the anemia #Leukocytosis, likely reactive #Thrombocytosis, likely reactive vs volume deficit #LLE pedal edema Plan: Admission to SDU transfuse 2 units No NSAIDS CLD now, NPO tonight, endoscopy tomorrow Levaquin for GI proph given recent surgery serial h/h Doppler LLE to r/o DVT in a.m. SCD's Appropriate home meds full code total critical care time is 45 mins
[2018-08-20] MEDS: HYDROCODONE/APAP 5/325 TAB PO PRN (16:47)
[2018-08-20] MEDS: PANTOPRAZOLE SODIUM 40 MG VIAL IVP SCH ×2 (16:48→21:20)
[2018-08-20] MEDS: FERROUS SULFATE 325 MG TAB PO SCH (16:49)
--- NOTE | 2018-08-20 17:00 | PDMN ---
Medical Necessity Medical necessity: MCG: M180 GIB upper A-2 days: melena with anemia secondary to acute blood loss ( H/H 5.8, 18.2) tachycardia, recent sgy ( TKA ) 67yoF presents with dizziness, SOB, weakness, near syncope and melena, leukocytosis, recent sgy with LLE pedal edema. - pt will receive two units PRBC, will be NPO for endoscopy in am. - anticipate > 2 MN ongoing med nec care - further monitoring, eval and tx of GIB
[2018-08-20] MEDS: ACYCLOVIR 400 MG TAB PO SCH (20:48)
[2018-08-20] MEDS: ACETAMINOPHEN 325 MG TAB PO PRN (20:48)
[2018-08-20] MEDS: ZOLPIDEM TARTRATE 5 MG TAB PO SCH (20:49)
[2018-08-21] MEDS: HYDROCODONE/APAP 5/325 TAB PO PRN ×3 (01:09→21:52)
[2018-08-21] MEDS: PANTOPRAZOLE SODIUM 40 MG VIAL IVP SCH (04:08)
[2018-08-21 05:55] LABS: PLATELET COUNT 301 10^3/uL (150-400)
[2018-08-21] MEDS ORDERED: FLUMAZENIL 0.5 MG/5 ML MDV IVP ONE (09:04)
[2018-08-21] MEDS ORDERED: NALOXONE HCL 0.4 MG/ML INJ ONE (09:04)
[2018-08-21] MEDS ORDERED: MIDAZOLAM 2 MG/2 ML VIAL ONE (09:04)
[2018-08-21] MEDS ORDERED: fentaNYL 100 MCG/2 ML INJ ONE (09:05)
[2018-08-21] MEDS ORDERED: fentaNYL 100 MCG/2 ML INJ IVP ONE (09:55)
[2018-08-21] MEDS ORDERED: MIDAZOLAM 2 MG/2 ML VIAL IVP ONE (09:55)
--- NOTE | 2018-08-21 10:13 | GIREPORT ---
[facility] Surgical Services - Endoscopy Department Patient Name: Elisabet Suarez Procedure Date: 08/21/2018 9:21 AM Patient Type: Inpatient Attending MD/ ER Physician: Ankur Rousseau MD Procedure: Upper GI endoscopy Indications: Melena. Hct now stable at 23.5%. Providers: Ankur Rousseau MD, [facility] [place] Referring MD: Arturo Alvarado MD; [facility] Hospitalist service Medicines: Fentanyl 100 micrograms IV, Midazolam 6 mg IV Complications: No immediate complications. Description of Procedure: After obtaining informed consent, the endoscope was passed under direct vision. Throughout the procedure, the patient's blood pressure, pulse, and oxygen saturations were monitored continuously. The Endoscope was intro duced through the mouth, and advanced to the second part of duodenum. Findings: The esophagus was normal. 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 G E junction at 35 cm. No active bleeding at present. Biopsies were taken w ith a cold forceps for histology from the edges. The examined duodenum was normal. Estimated Blood Loss: none. Post Op Diagnosis: - Very large submucosal tumor, as above, with a large ulcerated center. No active bleeding at present, but very high risk for rebleed. With it's large size, could be malignant. Regardless, even if a benign submucosal mass, will need to be removed, due to high risk of rebleed. Recommendation: - Pathology results pending, but mostly academic (with the lesion being submucosal, suspect will just show normal mucosa). - clears - change PPI to oral bid - check H/H A.M. - surgical consultation (I will call them, as well as alert the hospita list). I will discuss the above with the pt. - Thank you for allowing me to help in the management of this patient. Attending Participation: I personally performed the entire procedure. Onelia Pascual MD Ankur Rousseau MD 08/21/2018 10:12:24 AM This report has been signed electronicallyPeter MD Onelia Number of Addenda: 0 Note Initiated On: 08/21/2018 9:21 AM Total Procedure Duration Time 0 hours 16 minutes 6 seconds [email or web address]
[2018-08-21] MEDS: FERROUS SULFATE 325 MG TAB PO SCH (10:26)
--- NOTE | 2018-08-21 12:20 | ASMTCMCOM ---
CM Note CM Note Notes: Patient admitted for likely UGIB. Endoscopy today. She is s/p L TKA w Dr Molina 08/03. She is normally independent and supported by her daughter and friends in [place]. She is doing home PT with an independently contracted PT. She will resume this upon d/c. No other needs anticipated. Current CM discharge plan: home independent Date Signed: 08/21/2018 12:19 PM Electronically Signed By:Dulce Maria Oneill RN
--- NOTE | 2018-08-21 13:28 | HOSPPROG ---
Hospitalist Progress Note Assessment/Plan: #Melena, UGIB -cont PPI BID PO #Large Submucosal Mass with ulceration, this was likely the source of the bleed -no e/o active bleeding -Surgical consultation pending -CT A/P pending #ABLA -s/p 2 units PRBC on 08/20 #NSAID use: No NSAID use #S/p total knee replacement recently #Generalized Weakness due to the anemia #Leukocytosis, likely reactive, resolved #Thrombocytosis, likely reactive, resolved #LLE pedal edema: Negative Doppler for DVT Plan: Ok to transfer out of the SDU Surgical consult pending No NSAIDS CLD now Stop Levaquin SCD's Appropriate home meds full code Subjective: pt had endoscopy with large submucosal mass noted. no abd pain. H/H stable Objective: Vital Signs Temp Pulse Resp BP Pulse Ox 36.9 C 82 18 138/58 H 99 08/21/18 12:13 08/21/18 12:13 08/21/18 12:13 08/21/18 12:13 08/21/18 12:13 Laboratory Results 08/21/18 05:25 08/21/18 05:25 08/20/18 08/21/18 08/22/18 05:59 05:59 05:59 Intake Total 2565 Output Total 300 Balance 2265 PT 13.5 SEC (12.0-15.0) 08/20/18 12:52 INR 1.07 (0.83-1.16) 08/20/18 12:52 - Physical Exam Constitutional: no apparent distress Eyes: PERRL Ears, Nose, Mouth, Throat: moist mucous membranes, hearing normal Cardiovascular: regular rate and rhythym Respiratory: no respiratory distress, no rales or rhonchi Gastrointestinal: normoactive bowel sounds, soft, non-tender abdomen Skin: warm Neurologic: AAOx3 Psychiatric: interacting appropriately, not anxious, not encephalopathic Lymph, Heme, Immunologic: petechiae ICD10 Worksheet Patient Problems: Problems Problem Status Onset Osteoarthritis of left knee Acute
[2018-08-21] MEDS ORDERED: IOPAMIDOL (ISOVUE-300) 100 ML BTL ONE (13:35)
--- NOTE | 2018-08-21 17:29 | GCON ---
[f rep st] CONSULTATION REFERRING PHYSICIAN: Ankur Rousseau MD FAC CHIEF COMPLAINT: Bleeding gastric tumor. PRESENT ILLNESS: I have been asked to see the patient by Dr. Ankur Rousseau in regard to a 6 cm submucosal mass in the upper stomach. The patient presented with hematocrit of 18 and melena. Endoscopy was done after blood transfusion, revealing a 6 cm mass estimated 2 cm from the GE junction with some central ulceration, not actively bleeding. The differential diagnosis would include gastric wall tumor such as a GIST, leiomyoma of the stomach, leiomyosarcoma of the stomach, lymphoma, and much less likely adenocarcinoma of the stomach. PAST MEDICAL HISTORY: ALLERGIES: Amoxicillin. CURRENT MEDICATIONS: Ambien, acyclovir. REVIEW OF SYSTEMS: Patient denies asthma, heart trouble, diabetes, epilepsy, rheumatic fever. SOCIAL HISTORY: Nonsmoker, rare alcohol use. Lives in [place]. PREVIOUS SURGERY: No abdominal surgery. Recent left knee replacement for which she is undergoing physical therapy. PHYSICAL EXAMINATION: GENERAL: Pleasant, mildly obese female. ABDOMEN: Soft , benign. I have reviewed the CT scan, which shows the 5 to 6 cm mass in the upper stomach. It is unclear how much normal esophagus is present above this, and if this is a GIST tumor, certainly it can extend submucosally more than one would expect. She likely needs a proximal gastrectomy with reconstruction, either using the distal stomach or small bowel. This will likely be done from an abdominal surgical approach, although if the margins of the lower esophagus were positive , it would require a thoracotomy to complete the reconstruction to the lower esophagus. It would be nice to know the tissue pathology as there would be the option of shrinking this with Gleevec if it is a Gleevec-responsive GIST tumor. I discussed this with Dr. Kenyon in regard to performing endoscopic ultrasound guided biopsy, and he states this is reasonable and something he has done many times. 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 A leiomyoma or leiomyosarcoma would not be particularly responsive to medical shrinkage, and we would go straight to surgery, but we would have the option of discussing the use of Gleevec to shrink the GIST preoperatively to facilitate the anastomosis. The patient can likely be discharged tomorrow unless she bleeds again. Receive the endoscopic ultrasound biopsy over the course of the next week, and then we will all meet again for treatment planning. Thank you for the opportunity of seeing the patient. /[id number]/MODL MTDD
[2018-08-21] MEDS: PANTOPRAZOLE SODIUM 40 MG TAB PO SCH (21:03)
[2018-08-21] MEDS: ACETAMINOPHEN 325 MG TAB PO PRN (21:03)
[2018-08-21] MEDS: ACYCLOVIR 400 MG TAB PO SCH (21:04)
[2018-08-21] MEDS: ZOLPIDEM TARTRATE 5 MG TAB PO SCH (21:49)
[2018-08-22] MEDS: HYDROCODONE/APAP 5/325 TAB PO PRN (04:36)
[2018-08-22 08:19] VITALS: BP 119/66
--- NOTE | 2018-08-22 08:28 | SOAPPROG ---
SOAP Progress Note Assessment/Plan: Assessment/Plan: No further e/o bleeding. Dr. Rich's consult appreciated (case rediscussed with him). Agree with plan: - outpt EUS with core bxs, to help with surgical planning, preop oncologic treatment if needed, etc. I will arrange this. - outpt. f/u with Dr. Rich - from a GI standpoint, ok to d/c home, with reinforcing that if she was to rebleed, she would need to come back to the hospital emergently via ambulance. - no outpt. ASA; would use a generic PPI bid (although relatively unhelpful with an ulcer within a submucosal mass) - I will f/u on yesterday's bxs, but suspect will be falsely normal Thanks! 08/22/18 16:42 Subjective: cc: submucosal mass No further e/o bleeding. No rigors, chills, sweats, vomiting. Objective: Vital Signs Temp Pulse Resp BP Pulse Ox 37 C 85 16 119/66 95 08/22/18 08:00 08/22/18 08:00 08/22/18 08:00 08/22/18 08:00 08/22/18 08:00 Laboratory Results 08/22/18 04:45 08/21/18 05:25 08/21/18 08/22/18 08/23/18 05:59 05:59 05:59 Intake Total 2565 1800 Output Total 300 Balance 2265 1800 PT 13.5 SEC (12.0-15.0) 08/20/18 12:52 INR 1.07 (0.83-1.16) 08/20/18 12:[address] without mets. Physical Exam - Physical Exam General Appearance: WD/WN, alert, no apparent distress EENT: PERRL/EOMI, normal ENT inspection, pharynx normal, TMs normal Neck: non-tender, full range of motion, supple, normal inspection Respiratory: chest non-tender, lungs clear, normal breath sounds Cardiac/Chest: normal peripheral pulses, regular rate, rhythm Peripheral Pulses: 2+: carotid (R), carotid (L), femoral (R), femoral (L), dorsalis-pedis (R), dorsalis-pedis (L) Abdomen: normal bowel sounds, non-tender, soft Pelvic Exam: deferred Rectal: deferred Back: Normal inspection Skin: normal color, warm/dry Lymphatic: no adenopathy Extremities: normal range of motion, non-tender, normal inspection, normal capillary refill Neuro/Psych: no motor/sensory deficits, alert, normal mood/affect, oriented x 3 ICD10 Worksheet Patient Problems: Problems Problem Status Onset Osteoarthritis of left knee Acute
[2018-08-22] MEDS: PANTOPRAZOLE SODIUM 40 MG TAB PO SCH (08:59)
[2018-08-22] MEDS: ACETAMINOPHEN 325 MG TAB PO PRN (11:36)
--- NOTE | 2018-08-22 11:50 | PDDCSUM ---
Discharge Summary Discharge Summary: This is a 68 yo female that was admitted with acute GI Bleed and ABLA. She was transfused 2 units. She had an upper endoscopy which was consistent with a large mucosal gastric mass. A CT a/p showed 6 cm submucosal mass at the upper stomach. DDX includes Gastric wall tumor vs Leiomyoma of the stomach vs Leiomyosarcoma of the stomach vs Lymphoma vs Adenocarcinoma of the stomach. Dr. Juárez consulted. His plan is for endoscopic ultrasound for biopsy with Dr. Kenyon this week. This is being set up. Pending biopsy, decision will be for Proximal Gastrectomy with reconstruction vs initial Gleevec for tumor shrinking if the tumor is a Gleevec responsive tumor followed by Gastrectomy. She has no active bleeding. Hemoglobin is 8.9. No ASA F/u: GI to arrange endoscopy. will need f/u with Surgery DDX #Melena, UGIB -cont PPI BID PO #Large Submucosal Mass with ulceration, this was likely the source of the bleed -no e/o active bleeding -plan per above #ABLA -s/p 2 units PRBC on 08/20 #NSAID use: No NSAID use #S/p total knee replacement recently #Generalized Weakness due to the anemia #Leukocytosis, likely reactive, resolved #Thrombocytosis, likely reactive, resolved #LLE pedal edema: Negative Doppler for DVT Exam: NAD AAOX3 RRR CTA B S/NT/ND MEDS: SEE MED REC TOTAL TIME SPENT ON D/C IS 35 MINS
--- NOTE | 2018-08-22 12:04 | ASMTLACE ---
BRIE Length of stay for Answers: 2 days current admission Acuity / Level of Answers: Yes Care: Did the patient have an inpatient admission? Comorbidities - select Answers: Opioid dependence all that apply / Chronic pain # of Emergency department Answers: 1-2 visits in the last 6 months Score: 10 Date Signed: 08/22/2018 12:04 PM Electronically Signed By:Dulce Maria Oneill RN
== END 2018-08-22 13:10 | disposition home or self-care (01) | DRG 542 ==
LOC: OBSVTOIN 13:11 → F2N 14:31
PROVIDERS: ADMIT Family Medicine; ATTEND Internal Medicine
PROC: 30233N1 Transfusion of Nonautologous Red Blood Cells into Peripheral Vein, Percutaneous Approach (ICD-10-PCS; 2018-08-20)
PROC: 0DB68ZX Excision of Stomach, Via Natural or Artificial Opening Endoscopic, Diagnostic (ICD-10-PCS; principal; 2018-08-21 09:30)
DX: C49.A2 Gastrointestinal stromal tumor of stomach (principal); K28.4 Chronic or unspecified gastrojejunal ulcer with hemorrhage; D62 Acute posthemorrhagic anemia; K92.1 Melena; E86.9 Volume depletion, unspecified; D47.3 Essential (hemorrhagic) thrombocythemia; Z96.652 Presence of left artificial knee joint; Z79.1 Long term (current) use of non-steroidal anti-inflammatories (NSAID)
CPT/HCPCS: 82435-PO; 82565-PO; 82947-PO; 84132-PO; 84295-PO; 84520-PO; 85014-ER; 96374; 97161-GP; J1956; J2250; J2270; J2310; J2405; J3010; P9016; Q9967